=== PATIENT | male | born 1975 | race Caucasian/White ===

== ENCOUNTER 2017-04-28 09:32 | Emergency (ER) | payer SELFPAY ==
[2017-04-28 10:07] LABS: BASOPHILS % (AUTO) 0.5 % (0.0-5.0); EOSINOPHILS % (AUTO) 0.9 % (0.0-8.0); HEMATOCRIT 44.1 % (42-54); LYMPHOCYTES % (AUTO) 15.9 % (21.0-51.0); MEAN CORPUSCULAR HEMOGLOBIN 31.3 pg (27.0-33.0); MEAN CORPUSCULAR HGB CONC 35.2 g/dL (32.0-36.0); MONOCYTES % (AUTO) 7.6 % (3.0-13.0); NEUTROPHILS % (AUTO) 75.1 % (40.0-77.0); PLATELET COUNT (AUTO) 268 K/uL (130-400); RED BLOOD CELL COUNT(AUTO) 4.95 MIL/uL (4.50-6.20); RED CELL DISTRIBUTION WIDTH 13.8 % (11.0-15.5); WHITE BLOOD COUNT (AUTO) 8.9 K/uL (4.8-10.8)
[2017-04-28 10:29] LABS: CREATININE 0.9 mg/dL (0.5-1.5); POTASSIUM 3.9 mmol/L (3.5-5.1)
[2017-04-28] MEDS ORDERED: KETOROLAC TROMETHAMINE 30MG/ML ONE (10:42)
[2017-04-28 11:33] LABS: ERYTHROCYTE SEDIMENTATION RATE 1 MM/HR (0-15)
== END 2017-04-28 12:22 | disposition home or self-care (01) ==
LOC: EDH 09:32
DX: M10.9 Gout, unspecified (principal); Z72.0 Tobacco use
CPT/HCPCS: 36415; 73070; 80048; 85025; 85651; 86141; 87040; 96372; 96374; 99285; J1030; J1885